=== PATIENT | female | born 1945 | race Caucasian/White ===

== ENCOUNTER 2018-12-19 06:36 | Day surgery (SDC) | payer MEDICARE, OTHER ==
[2018-12-19] MEDS ORDERED: fentaNYL 100 MCG/2 ML VIAL IVP ONE (06:37)
[2018-12-19] MEDS ORDERED: MIDAZOLAM 2 MG/2 ML VIAL IVP ONE (06:37)
[2018-12-19] MEDS ORDERED: PHENYLEPHRINE 2.5% OPHTH 2 ML DROPS ONE (06:41)
[2018-12-19] MEDS ORDERED: KETOROLAC 0.45% OPHTH DROPS ONE (06:41)
[2018-12-19] MEDS ORDERED: CYCLOPENTOLATE 1% OPHTH DROPS 2 ML ONE (06:42)
[2018-12-19] MEDS ORDERED: PROPARACAINE 0.5% OPHTH DROPS 15 ML ONE (06:42)
[2018-12-19] MEDS ORDERED: TIMOLOL 0.5% OPHTH DROPS ONE (06:46)
[2018-12-19] MEDS ORDERED: BRIMONIDINE 0.2% OPHTH DROPS 5 ML ONE (06:46)
[2018-12-19] MEDS ORDERED: EPINEPHrine 1 MG/ML AMP ONE (06:46)
[2018-12-19] MEDS ORDERED: TRIAMCIN/MOXIFLOX OPHTHALMIC 0.6 ML VIAL IO ONE ×2 (06:46→08:07)
[2018-12-19] MEDS ORDERED: BSS/LIDOCAINE/EPINEPHRINE 1 ML SYRINGE ONE (06:47)
[2018-12-19] MEDS ORDERED: VANCOMYCIN OPHTHALMI 8MG/0.8ML 8 MG/0.8 ML SYRINGE IO ONE ×2 (06:47→08:08)
[2018-12-19] MEDS ORDERED: LACTATED RINGERS 500 ML IV ONE (06:52)
[2018-12-19] MEDS ORDERED: PHENYLEPHRINE 2.5% OPHTH 2 ML DROPS RIGHTEYE ONE (06:55)
[2018-12-19] MEDS ORDERED: PROPARACAINE 0.5% OPHTH DROPS 15 ML RIGHTEYE ONE ×2 (06:55→08:07)
[2018-12-19] MEDS ORDERED: KETOROLAC 0.45% OPHTH DROPS RIGHTEYE ONE (06:55)
[2018-12-19] MEDS ORDERED: CYCLOPENTOLATE 1% OPHTH DROPS 2 ML RIGHTEYE ONE (06:55)
--- NOTE | 2018-12-19 07:27 | ANESTHESIA ---
Pre-Anesthesia VS, & Labs - Diagnosis Left nuclear sclerotic cataract - Procedure Left phaco with IOL implant Vital Signs: Temp Pulse Resp BP Pulse Ox 36.9 C 80 16 119/107 H 94 12/19/18 06:54 12/19/18 06:54 12/19/18 06:54 12/19/18 06:54 12/19/18 06:54 Height 5 ft 5 in Weight (kg) 91.3 kg Body Mass Index 35.9 - NPO >8 hours - Is Patient ?: Not Applicable - Lab Results Lab results reviewed: No Home Medications and Allergies Home Medications: Ambulatory Orders Amlodipine Bes/Olmesartan Med [Isrrael 5-40 mg Tablet] 1 each PO DAILY 12/18/18 Febuxostat [Uloric] 40 mg PO 12/18/18 Levothyroxine [Synthroid] 125 mcg PO QDAC 12/18/18 Amlodipine Bes/Olmesartan Med [Isrrael 5-40 mg Tablet] 1 each PO DAILY 12/18/18 Febuxostat [Uloric] 40 mg PO 12/18/18 Levothyroxine [Synthroid] 125 mcg PO QDAC 12/18/18 Allergies/Adverse Reactions: Allergies Allergy/AdvReac Type Severity Reaction Status Date / Time No Known Drug Allergies Allergy Verified 12/19/18 07:08 Anes History & Medical History - Anesthetic History Anesthesia Complications: reports: No previous complications Family history of Anesthesia Complications: Denies Family history of Malignant Hyperthermia: Denies - Medical History Cardiovascular: reports: Hypertension Pulmonary: reports: None Gastrointestinal: reports: GERD, Other Urinary: reports: None Neuro: reports: None Musculoskeletal: reports: Osteoarthritis Endocrine/Autoimmune: reports: HyPOthyroidism Blood Disorders: reports: None Skin: reports: None Smoking Status: Never smoker Psychosocial: reports: No issues indicated - Surgical History General: Appendectomy Eyes Ears Nose Throat (EENT):  Gynecologic: Endometrial ablation, Hysterectomy, Oophrectomy, Other Orthopedic: Spine surgery Dermatologic: Skin cancer surgery Exam General: Alert, Oriented x3, Cooperative Dental: WNL Neck Mobility: Limited (Neck fusion C1-T3, extremely limited movement) Mallampati classification: II Thyromental Distance: 4-6 cm Respiratory: Lungs clear Cardiovascular: Regular rate, Normal S2 Mental/Cognitive Status: Alert/Oriented X3 Cognitive Status: Within normal limits Plan Anesthesia Type: MAC Consent for Procedure(s) Verified and Reviewed: Yes Code Status: Attempt Resuscitation ASA classification: 2-Mild systemic disease Is this case an emergency?: No
[2018-12-19] MEDS ORDERED: BRIMONIDINE 0.2% OPHTH DROPS 5 ML OPTH ONE (08:06)
[2018-12-19] MEDS ORDERED: EPINEPHrine 1 MG/ML AMP IVP ONE (08:06)
[2018-12-19] MEDS ORDERED: TIMOLOL 0.5% OPHTH DROPS OPTH ONE (08:07)
[2018-12-19] MEDS ORDERED: CHONDR SULF/HYALURONATE SYRINGE IO ONE (08:07)
[2018-12-19] MEDS ORDERED: BSS/LIDOCAINE/EPINEPHRINE 1 ML SYRINGE IO ONE (08:07)
--- NOTE | 2018-12-19 08:47 | PROCEDURE REPORT ---
DATE OF SERVICE: 12/19/2018 Physician: Gage Gonsalez MD PREOPERATIVE DIAGNOSIS: Visually significant cataract, right eye. This was her first cataract surge ry. POSTOPERATIVE DIAGNOSIS: Visually significant cataract, right eye. This was her first cataract surg nancy. DESCRIPTION OF PROCEDURE: Phacoemulsification with posterior chamber intraocular lens implant, right eye. SURGEON: Gage Gonsalez MD ANESTHESIA: Monitored anesthesia care. COMPLICATIONS: None. OPERATIVE INDICATIONS: This is a 73-year-old woman with progressive vision loss in the right eye due to 2+ nuclear sclerotic cataract. Best corrected visual acuity was 20/30 with glare to 20/500 in th e right eye. Indications for surgery are overall decrease in vision, difficulty seeing words on a [employer] screen, difficulty reading, difficulty seeing street signs, difficulty driving in low light or at night, difficulty driving at night because of headlights from other vehicles, and difficulty with glare or bright lights in any situation. She was consented at length concerning risks and benefits of cataract surgery, after which she expressed a desire to proceed with surgery. OPERATIVE PROCEDURE: The patient was taken to OR #3 and placed under monitored anesthesia care. A s urgical timeout was conducted confirming correct patient, correct procedure, and correct surgical sit e. She was given topical anesthesia, then prepped and draped in the usual sterile fashion. The eye was entered at the 12 and 9 o'clock positions. Intracameral Shugarcaine was injected into the anteri or chamber, followed by Viscoat. A continuous-tear curvilinear capsulorrhexis was performed. The nu cleus was hydrodissected and phacoemulsified. The cortex was evacuated using automated infusion and aspiration. Provisc was injected in the capsular bag, and a 19.0 diopter intraocular lens was insert ed in the bag. Approximately 0.8 mL of a mixture of triamcinolone, moxifloxacin and vancomycin was i njected subconjunctivally in the superior quadrant for infection and inflammation prophylaxis. I and A, was used to evacuate the viscoelastic materials. The eye was inflated to physiologic pressure us ing balanced salt solution and found to be watertight. The patient was taken from the operating room in good condition and given postoperative instructions. TD: 12/19/2018 08:39
[2018-12-19 10:32] VITALS: BP 132/62
== END 2018-12-19 06:37 | disposition home or self-care (01) ==
LOC: SDS 06:36
PROVIDERS: ATTEND Ophthalmology
PROC: 08RJ3JZ Replacement of Right Lens with Synthetic Substitute, Percutaneous Approach (ICD-10-PCS; principal; 2018-12-19 08:00)
DX: H25.11 Age-related nuclear cataract, right eye (principal); E03.9 Hypothyroidism, unspecified; K21.9 Gastro-esophageal reflux disease without esophagitis; M10.9 Gout, unspecified; Z87.891 Personal history of nicotine dependence; Z87.19 Personal history of other diseases of the digestive system
CPT/HCPCS: 66984; A9270; J3490; V2632

== ENCOUNTER 2019-01-16 08:24 | Day surgery (SDC) | payer MEDICARE, OTHER ==
[~2019-01-16 08:24] MED LIST: BRIMONIDINE 0.2% OPHTH DROPS 5 ML ONE; BSS/LIDOCAINE/EPINEPHRINE 1 ML SYRINGE ONE; CYCLOPENTOLATE 1% OPHTH DROPS 2 ML ONE; KETOROLAC 0.45% OPHTH DROPS ONE; PHENYLEPHRINE 2.5% OPHTH 2 ML DROPS ONE; PROPARACAINE 0.5% OPHTH DROPS 15 ML ONE; TIMOLOL 0.5% OPHTH DROPS ONE; TRIAMCIN/MOXIFLOX OPHTHALMIC 0.6 ML VIAL IO ONE; VANCOMYCIN OPHTHALMI 8MG/0.8ML 8 MG/0.8 ML SYRINGE IO ONE
[2019-01-16] MEDS ORDERED: MIDAZOLAM 2 MG/2 ML VIAL IVP ONE (08:25)
[2019-01-16] MEDS ORDERED: LACTATED RINGERS 500 ML IV ONE (08:32)
[2019-01-16] MEDS ORDERED: CYCLOPENTOLATE 1% OPHTH DROPS 2 ML LEFTEYE ONE (08:40)
[2019-01-16] MEDS ORDERED: PHENYLEPHRINE 2.5% OPHTH 2 ML DROPS LEFTEYE ONE (08:40)
[2019-01-16] MEDS ORDERED: PROPARACAINE 0.5% OPHTH DROPS 15 ML LEFTEYE ONE ×2 (08:40→09:52)
[2019-01-16] MEDS ORDERED: KETOROLAC 0.45% OPHTH DROPS LEFTEYE ONE (08:40)
--- NOTE | 2019-01-16 08:56 | ANESTHESIA ---
Pre-Anesthesia VS, & Labs - Diagnosis left nuclear sclerotic cataract - Procedure left cataract ectraction with intraocular lens implant Vital Signs: Temp Pulse Resp BP Pulse Ox 36.2 C L 80 16 149/76 H 95 01/16/19 08:34 01/16/19 08:34 01/16/19 08:34 01/16/19 08:34 01/16/19 08:34 Height 5 ft 5 in Weight (kg) 89 kg Body Mass Index 35.9 - NPO >8 hours - Is Patient ?: No Home Medications and Allergies Home Medications: Ambulatory Orders Estrogens, Conjugated [Premarin] 0.625 mg PO DAILY 01/16/19 Amlodipine Bes/Olmesartan Med [Isrrael 5-40 mg Tablet] 1 each PO DAILY 12/18/18 Febuxostat [Uloric] 40 mg PO 12/18/18 Levothyroxine [Synthroid] 125 mcg PO QDAC 12/18/18 Estrogens, Conjugated [Premarin] 0.625 mg PO DAILY 01/16/19 Allergies/Adverse Reactions: Allergies Allergy/AdvReac Type Severity Reaction Status Date / Time No Known Drug Allergies Allergy Verified 01/15/19 13:58 Anes History & Medical History - Anesthetic History Anesthesia Complications: reports: No previous complications - Medical History Cardiovascular: reports: Hypertension Pulmonary: reports: None Gastrointestinal: reports: Other Urinary: reports: None Neuro: reports: None Musculoskeletal: reports: Osteoarthritis, Other Endocrine/Autoimmune: reports: HyPOthyroidism Blood Disorders: reports: None Skin: reports: None Smoking Status: Never smoker - Surgical History General: Appendectomy, Bowel surgery Eyes Ears Nose Throat (EENT): Cataracts, Tonsil/Adenoidectomy Gynecologic: Hysterectomy, Oophrectomy Orthopedic: Spine surgery Dermatologic: Skin cancer surgery Exam Dental: WNL Mouth Opening: Greater than 4 Fingerbreadths Mallampati classification: II Thyromental Distance: greater than 6 cm Respiratory: Lungs clear Cardiovascular: Regular rate Plan Anesthesia Type: MAC Consent for Procedure(s) Verified and Reviewed: Yes Code Status: Attempt Resuscitation ASA classification: 2-Mild systemic disease Is this case an emergency?: No
[2019-01-16] MEDS ORDERED: EPINEPHrine 1 MG/ML AMP IVP ONE (09:58)
[2019-01-16] MEDS ORDERED: BRIMONIDINE 0.2% OPHTH DROPS 5 ML OPTH ONE (09:58)
[2019-01-16] MEDS ORDERED: TIMOLOL 0.5% OPHTH DROPS OPTH ONE (09:59)
[2019-01-16] MEDS ORDERED: VANCOMYCIN OPHTHALMI 8MG/0.8ML 8 MG/0.8 ML SYRINGE IO ONE (09:59)
[2019-01-16] MEDS ORDERED: BSS/LIDOCAINE/EPINEPHRINE 1 ML SYRINGE IO ONE (09:59)
[2019-01-16] MEDS ORDERED: CHONDR SULF/HYALURONATE SYRINGE IO ONE (09:59)
[2019-01-16] MEDS ORDERED: TRIAMCIN/MOXIFLOX OPHTHALMIC 0.6 ML VIAL IO ONE (10:00)
[2019-01-16 10:35] VITALS: BP 103/67
--- NOTE | 2019-01-16 10:39 | OPERATIVE REPORT ---
DATE OF SERVICE: 01/16/2019 Physician: Gage Gonsalez MD PREOPERATIVE DIAGNOSIS: Visually significant cataract, left eye. Cataract surgery was performed on the right eye on 12/19/2018. POSTOPERATIVE DIAGNOSIS: Visually significant cataract, left eye. Cataract surgery was performed on the right eye on. PROCEDURE: Phacoemulsification with posterior chamber intraocular lens implant, left eye. SURGEON: Gage Gonsalez MD ANESTHESIA: Monitored anesthesia care. COMPLICATIONS: None. OPERATIVE INDICATIONS: This is a 73-year-old woman with progressive vision loss in the left eye due to 2 to 3+ nuclear sclerotic cataract. Best corrected visual acuity was 20/30 with glare to 20/80 in the left eye. Indications for surgery were difficulty reading, difficulty seeing words, closed caption or game scores on TV, difficulty seeing street signs, difficulty driving in low light or at night, difficulty driving at night because of headlights from other vehicles, and difficulty with glare or bright lights in any situation. She was consented at length concerning risks and benefits of cataract surgery, after which she expressed a desire to proceed with surgery. OPERATIVE PROCEDURE: Patient was taken to OR #3 and placed under monitored anesthesia care. A surgical timeout was conducted confirming correct patient, correct procedure, and correct surgical site. She was given topical anesthesia, and prepped and draped in the usual sterile fashion. The eye was entered at the 6 and 3 o'clock positions. Intracameral Shugarcaine was injected into the anterior chamber, followed by Viscoat. A continuous-tear curvilinear capsulorrhexis was performed. The nucleus was hydrodissected and phacoemulsified. The cortex was evacuated using automated infusion and aspiration. Provisc was injected in the capsular bag, and a 19.5 diopter intraocular lens inserted in the bag. Approximately 0.25 mL mixture of triamcinolone and moxifloxacin was injected transsclerally into the vitreous. An additional 0.55 mL of a mixture of triamcinolone, moxifloxacin and vancomycin was injected subconjunctivally in the superior quadrant for infection and inflammation prophylaxis. I and A was used to evacuate the viscoelastic materials. The eye was inflated to physiologic pressure using balanced salt solution and found to be watertight. Patient was taken from the operating room in good condition and given postoperative instructions. TD: 01/16/2019 10:22 MTDBernie
== END 2019-01-16 08:25 | disposition home or self-care (01) ==
LOC: SDS 08:24
PROVIDERS: ATTEND Ophthalmology
PROC: 08RK3JZ Replacement of Left Lens with Synthetic Substitute, Percutaneous Approach (ICD-10-PCS; principal; 2019-01-16 09:30)
DX: H25.12 Age-related nuclear cataract, left eye (principal); G25.0 Essential tremor; Z87.891 Personal history of nicotine dependence; I10 Essential (primary) hypertension; E03.9 Hypothyroidism, unspecified
CPT/HCPCS: 66984; A9270; J3490; V2632

== ENCOUNTER 2019-03-28 14:53 | Emergency (ER) | payer MEDICARE, OTHER ==
[2019-03-28 15:01] VITALS: BP 179/74
--- NOTE | 2019-03-28 15:26 | ED Physician Documentation ---
PD HPI UPPER EXT INJURY - Stated complaint Stated Complaint: LT FINGER'S LAC - Chief complaint Chief Complaint: Laceration - History obtained from History obtained from: Patient - History of Present Illness Location: Left, Finger (2nd and 3rd digits) Type of injury: Laceration Where injury occurred: Home Timing - onset: How many hours ago (4) Timing - duration: Hours (4) Timing - details: Abrupt onset Pain level max: 3 Pain level now: 1 Improved by: Rest Worsened by: Moving, Palpating Associated symptoms: No: Weakness, Numbness, Tingling, Swelling Recently seen: Not recently seen - Additonal information Additional information: pt is right handed. Td UTD Review of Systems Constitutional: denies: Fever, Chills GI: denies: Vomiting PD PAST MEDICAL HISTORY - Past Medical History Cardiovascular: Hypertension Respiratory: None Neuro: None Endocrine/Autoimmune: HyPOthyroidism GI: Other : None HEENT: Chronic vision loss, Chronic hearing loss Psych: None Musculoskeletal: Osteoarthritis, Other Derm: None - Past Surgical History Past Surgical History: Yes General: Appendectomy, Bowel surgery Ortho: Spine surgery /[employer]AI [employer]: Hysterectomy, Oophrectomy HEENT: Cataracts, Tonsil/Adenoidectomy Derm: Skin cancer surgery - Present Medications Home Medications: Ambulatory Orders Medication Instructions Recorded Confirmed Metoclopramide [Reglan] 10 mg PO Q6H PRN #15 tablet 10/12/18 01/16/19 Polyethylene Glycol 3350 [Miralax] 17 gm PO DAILY PRN #1 bottle 10/12/18 01/15/19 Amlodipine Bes/Olmesartan Med 1 each PO DAILY 12/18/18 01/16/19 [Isrrael 5-40 mg Tablet] Febuxostat [Uloric] 40 mg PO 12/18/18 Levothyroxine [Synthroid] 125 mcg PO QDAC 12/18/18 01/15/19 Estrogens, Conjugated [Premarin] 0.625 mg PO DAILY 01/16/19 01/16/19 - Allergies Allergies/Adverse Reactions: Allergies Allergy/AdvReac Type Severity Reaction Status Date / Time No Known Drug Allergies Allergy Verified 03/28/19 14:57 - Social History Does the pt smoke?: No Smoking Status: Never smoker Does the pt drink ETOH?: No Does the pt have substance abuse?: No - Immunizations Immunizations are current?: Yes - POLST Patient has POLST: No PD ED PE NORMAL - Vitals Vital signs reviewed: Yes - General General: Alert and oriented X 3, No acute distress - Derm Derm: Warm and dry - Neuro Neuro: Alert and oriented X 3 PD ED PE EXPANDED - Extremities REBECCA UE/Hands Visual: 1 - laceration (1cm, linear, NVI. no tendon injury) 2 - laceration (1cm, linear, NVI. no tendon injury) Results - Vitals Vitals: Vital Signs - 24 hr 03/28/19 14:57 Temperature 36.5 C Heart Rate 77 Respiratory 14 Rate Blood Pressure 179/74 H O2 Saturation 99 Oxygen O2 Source Room air Procedures - Laceration (location) L fingers Length in cm: 2 Wound type: Linear, Into subcut fat, Clean Neurovascular status: Sensory intact, Motor intact, Vascular intact Tendon involvement: Tendon intact Wound Preparation: Irrigated copiously NS Skin layer closure: Dermabond Other: Patient tolerated well, No complications, Neurovascular intact, Tetanus UTD Complexity: Simple PD MEDICAL DECISION MAKING - ED course Complexity details: considered differential, d/w patient ED course: Patient with left second and third digit lacerations. These were repaired with Dermabond. Tolerated well. Warnings of infection and instructions on wound care given at bedside. Also counseled on how to minimize scarring. Patient counseled regarding signs and symptoms for which I believe and urgent re- evaluation would be necessary. Patient with good understanding of and agreement to plan and is comfortable going home at this time This document was made in part using voice recognition software. While efforts are made to proofread this document, sound alike and grammatical errors may occur. Departure - Departure Disposition: 01 Home, Self Care Clinical Impression: Finger laceration Qualifiers: Encounter type: initial encounter Finger: unspecified finger Damage to nail status: without damage Foreign body presence: without foreign body Laterality: left Qualified Code(s): S61.219A - Laceration without foreign body of unspecified finger without damage to nail, initial encounter Condition: Good Instructions: ED Laceration Hand Follow-Up: your,doctor as needed. [Other] Comments: Return if you worsen. Especially if you notice redness, swelling or drainage from the wound. Keep the wound clean. Do not apply ointment as this may dissolve the glue.
== END 2019-03-28 15:52 | disposition home or self-care (01) ==
LOC: ED 14:53
DX: S61.211A Laceration without foreign body of left index finger without damage to nail, initial encounter (principal); S61.213A Laceration without foreign body of left middle finger without damage to nail, initial encounter; X58.XXXA Exposure to other specified factors, initial encounter; Y92.009 Unspecified place in unspecified non-institutional (private) residence as the place of occurrence of the external cause; I10 Essential (primary) hypertension
CPT/HCPCS: 12001; 99282

== ENCOUNTER 2019-04-24 07:35 | Outpatient (CLI) | payer MEDICARE, OTHER ==
--- NOTE | 2019-05-06 15:22 | Mammography Report ---
Reason: ROUTINE MAMMO Procedure Date: 04/24/2019 Accession Number: [id number] / [id number] Procedure: ESEQUIEL - Screening Mammo w/Db CPT Code: Final Report FULL RESULT: EXAM: Screening Mammo w/Db DATE: 04/24/2019 8:35 AM CLINICAL HISTORY: Screening encounter. History of nulliparity. History of benign right and left breast biopsies. Family history of breast cancer in the mother at the age of 88. TECHNIQUE: (B) - Bilateral CC, laterally exaggerated CC, MLO views were obtained. COMPARISON: 02/05/2018 through 01/21/2015. PARENCHYMAL PATTERN: (A) - The breast(s) demonstrate(s) scattered fibroglandular densities. FINDINGS: Postbiopsy changes are stable. There are no suspicious masses, calcifications, or areas of distortion. IMPRESSION: Benign findings. BI-RADS category 2. RECOMMENDATION: (ANNUAL) - Recommend routine annual screening mammography. BI-RADS CATEGORY: (2) - Benign Findings. STANDARD QUALIFYING STATEMENTS: 1. This examination was not reviewed with the aid of Computer-Aided Detection (CAD). 2. A negative or benign imaging report should not preclude biopsy if clinically suspicious findings are present. 3. Dense breasts may obscure an underlying neoplasm. 4. This examination was reviewed with the aid of 3D breast imaging (tomosynthesis).
== END 2019-04-24 07:36 | disposition home or self-care (01) ==
LOC: DI 07:35
DX: Z12.31 Encounter for screening mammogram for malignant neoplasm of breast (principal); Z80.3 Family history of malignant neoplasm of breast
CPT/HCPCS: 77063; 77067